=== PATIENT | male | born 1940 | race Two or more races ===

== ENCOUNTER 2017-10-17 15:07 | Inpatient (IN) | payer MEDICARE, OTHER ==
[~2017-10-17] VITALS: Ht 182.9 cm; Wt 77.1 kg
[~2017-10-17 15:07] MED LIST: ACETAMINOPHEN325 M1 ORAL; AMBIEN5 MG ORAL; ARICEPT5 MG ORAL; ASPIRIN81 M3 PO; ATARAX50 MG ORAL; ATENOLOL50 MG ORAL; FUROSEMIDE40 MG ORAL; LORAZEPAM0.5 MG ORAL; LOSARTAN POTASS50 MG ORAL; OMEPRAZOLE20 M2 ORAL; POTASSIUM CHLO20 ME3 PO; RISPERDAL0.5 MG ORAL; ROPINIROLE HCL1 MG PO; SERTRALINE HCL25 MG ORAL; SPIRONOLACTONE100 MG ORAL; TAMSULOSIN HCL0.4 MG ORAL
--- NOTE | 2017-10-17 16:14 | Diagnostic Imaging Report ---
Indication: Altered mental status Technique: spiral acquisitions obtained through the brain. Angled axial and coronal 5 x 5 mm slices were reconstructed. No IV contrast utilized. Radiation dose was minimized using automated exposure control Total dose length product 2301.54 mGycm. CTDIvol(s) 70.38,70.38 mGy Comparison: 12/26/2014 FINDINGS: No acute hemorrhage or edema. No mass effect or midline shift. There is age-related enlargement of the ventricles and extra axial CSF spaces. There is periventricular deep white matter ischemic change. Normal ferraro-white differentiation. Visualized orbits are unremarkable. . There is minimal right maxillary sinus disease and minimal right ethmoid sinus disease. There is a defect of the right posterior mastoids which may be postsurgical. This is also evident previously. Intact calvarium. No significant interim change IMPRESSION: Chronic and age-related changes. Negative for acute intracranial bleed or mass effect Postsurgical changes of the right mastoid, also previously described Minimal sinus disease The CT scanner at [facility] is accredited by the [employer] and the scans are performed using protocols designed to limit radiation exposure to as low as reasonably achievable to attain images of sufficient resolution adequate for diagnostic evaluation
[2017-10-17 16:22] VITALS: BP 112/67
--- NOTE | 2017-10-17 16:28 | Diagnostic Imaging Report ---
Indication: Chest pain Technique: One view of the chest Comparison: 12/26/2014 Findings: Suboptimal inspiration with minimal atelectasis and crowding of the vascular markings in the right infrahilar region. Lungs and pleural spaces are otherwise clear. There is a left chest AICD again demonstrated. Impression: Hypoventilatory exam. No acute process
[2017-10-17] MEDS ORDERED: LORazepam Inj 2mg/ml 1ml ONE (16:39)
[2017-10-17 16:40] LABS: BASOPHILS % (AUTO) 0.8 % (0.0-2.0); EOSINOPHILS % (AUTO) 1.7 % (0.0-3.0); HEMATOCRIT 44.5 % (42.0-52.0); HEMOGLOBIN 14.5 G/DL (14.2-18.0); LYMPHOCYTES % (AUTO) 19.7 % (20.0-45.0); MEAN CORPUSCULAR VOLUME 96 FL (80-99); MONOCYTES % (AUTO) 13.1 % (1.0-10.0); NEUTROPHILS % (AUTO) 64.7 % (45.0-75.0); PLATELET COUNT 148 K/UL (150-450); RED BLOOD COUNT 4.63 M/UL (4.70-6.10); RED CELL DISTRIBUTION WIDTH 13.5 % (11.6-14.8); WHITE BLOOD COUNT 7.5 K/UL (4.8-10.8)
[2017-10-17 17:03] LABS: ANION GAP 4 mmol/L (5-15); BLOOD UREA NITROGEN 27 mg/dL (7-18); CALCIUM 9.2 MG/DL (8.5-10.1); CARBON DIOXIDE 36 MMOL/L (21-32); CHLORIDE 101 MMOL/L (98-107); CREATININE 1.1 MG/DL (0.55-1.30); POTASSIUM 3.9 MMOL/L (3.5-5.1); SODIUM 141 MMOL/L (136-145)
[2017-10-17 17:12] LABS: ALANINE AMINOTRANSFERASE 26 U/L (12-78); ALBUMIN 3.2 G/DL (3.4-5.0); ALBUMIN/GLOBULIN RATIO 0.7 (1.0-2.7); ALKALINE PHOSPHATASE 53 U/L (46-116); ASPARTATE AMINO TRANSFERASE 25 U/L (15-37); BILIRUBIN,TOTAL 0.6 MG/DL (0.2-1.0); CREATINE KINASE 68 U/L (26-308); PHOSPHORUS 3.2 MG/DL (2.5-4.9)
[2017-10-17] MEDS ORDERED: LORazepam Inj 2mg/ml 1ml IV ONE (17:15)
[2017-10-17] MEDS ORDERED: DEPAKOTE ER250 MG ORAL (17:17)
[2017-10-17] MEDS ORDERED: LIDEX15 GM TOPIC (17:17)
[2017-10-17] MEDS ORDERED: LASIX40 MG ORAL (17:17)
[2017-10-17] MEDS ORDERED: LOSARTAN POTASS25 MG ORAL (17:17)
[2017-10-17] MEDS ORDERED: MULTIVITAMINS1 EA11 ORAL (17:17)
[2017-10-17] MEDS ORDERED: cefTRIAXone 1 GM in D5W 55 ML IVPB ONE (17:30)
--- NOTE | 2017-10-17 17:41 | History & Physical ---
History and Physical History & Physicial bilateral cellulitis LE Dementia. Wandering and elopement risk. History of hypertension. History of gastroesophageal reflux disease. Left facial droop. Ancef leg elevation Psych eval # [id number] MENA CÁRDENAS Oct 17, 2017 17:41
--- NOTE | 2017-10-17 17:43 | Emergency Room Report ---
History of Present Illness General Chief Complaint: Altered Level of Consciousness Source: Medical Record, EMS Present Illness HPI This patient was brought in from a shelter facility. There is concern for altered mental status. The patient is unable to give a history. Apparently he is more confused than usual and this has been progressing. There is also been noticeable lower extremity edema and erythema. He is on Keflex orally twice daily. There are no other complaints. Allergies: Coded Allergies: No Known Allergies (Unverified , 10/08/14) Patient History Past Medical History: see triage record, HTN, [place], CAD, GERD, dementia Past Surgical History: pacemaker Social History: Denies: smoking, alcohol use, drug use Reviewed Nursing Documentation: PMH: Agreed, PSxH: Agreed Nursing Documentation-PMH Hx Cardiac Problems: No - BPH Hx Hypertension: Yes Hx Pacemaker: Yes - A paced Hx Cancer: No Hx Gastrointestinal Problems: Yes Hx Neurological Problems: Yes Hx Dementia: Yes Hx Speech Problem: Yes Hx Tremors: Yes Review of Systems All Other Systems: limited Physical Exam Vital Signs Date Time Temp Pulse Resp B/P (MAP) Pulse Ox O2 Delivery O2 Flow Rate FiO2 10/17/17 15:17 98.6 90 16 110/68 98 Room Air 98.6 Sp02 EP Interpretation: reviewed, normal General Appearance: no apparent distress, alert, GCS 15, non-toxic Head: normocephalic, atraumatic Eyes: bilateral eye normal inspection, bilateral eye PERRL ENT: hearing grossly normal, normal pharynx, no angioedema, normal voice Neck: full range of motion, supple/symm/no masses Respiratory: chest non-tender, lungs clear, normal breath sounds, no respiratory distress, no retraction, no accessory muscle use, speaking full sentences Cardiovascular #1: regular rate, rhythm, no edema Gastrointestinal: normal bowel sounds, non tender, soft, non-distended, no guarding, no rebound, overweight Rectal: deferred Musculoskeletal: back normal, normal range of motion, non-tender, swelling - BLE swelling and erythema foot to mid kincaid Neurologic: alert, oriented x3, responsive, motor strength/tone normal, sensory intact, speech normal Psychiatric: other - agitated Skin: other - See MSK exam Medical Decision Making Diagnostic Impression: Primary Impression: Bilateral cellulitis of lower leg Additional Impression: Venous stasis dermatitis of both lower extremities ER Course This patient has venous stasis dermatitis of bilateral lower extremities. He may have an overlying cellulitis. He is currently on oral antibiotics. Apparently his symptoms have worsened. He is given IV Rocephin and admitted for further evaluation and treatment. Currently he is also had some progression of his confusion. I am unsure of the etiology of this. Differential diagnosis includes medication side effect, infection, worsening dementia to name a few. The patient is admitted for further evaluation and treatment. Laboratory Tests Test 10/17/17 15:50 White Blood Count 7.5 K/UL (4.8-10.8) Red Blood Count 4.63 M/UL (4.70-6.10) L Hemoglobin 14.5 G/DL (14.2-18.0) Hematocrit 44.5 % (42.0-52.0) Mean Corpuscular Volume 96 FL (80-99) Mean Corpuscular Hemoglobin 31.4 PG (27.0-31.0) H Mean Corpuscular Hemoglobin Concent 32.6 G/DL (32.0-36.0) Red Cell Distribution Width 13.5 % (11.6-14.8) Platelet Count 148 K/UL (150-450) L Mean Platelet Volume 11.1 FL (6.5-10.1) H Neutrophils (%) (Auto) 64.7 % (45.0-75.0) Lymphocytes (%) (Auto) 19.7 % (20.0-45.0) L Monocytes (%) (Auto) 13.1 % (1.0-10.0) H Eosinophils (%) (Auto) 1.7 % (0.0-3.0) Basophils (%) (Auto) 0.8 % (0.0-2.0) Prothrombin Time 10.7 SEC (9.30-11.50) Prothrombin Time INR 1.0 (0.9-1.1) PTT 25 SEC (23-33) Sodium Level 141 MMOL/L (136-145) Potassium Level 3.9 MMOL/L (3.5-5.1) Chloride Level 101 MMOL/L (98-107) Carbon Dioxide Level 36 MMOL/L (21-32) H Anion Gap 4 mmol/L (5-15) L Blood Urea Nitrogen 27 mg/dL (7-18) H Creatinine 1.1 MG/DL (0.55-1.30) Estimate Glomerular Filtration Rate mL/min (>60) Glucose Level 94 MG/DL (74-106) Lactic Acid Level 1.00 mmol/L (0.66-2.22) Calcium Level 9.2 MG/DL (8.5-10.1) Phosphorus Level 3.2 MG/DL (2.5-4.9) Magnesium Level 2.1 MG/DL (1.8-2.4) Total Bilirubin 0.6 MG/DL (0.2-1.0) Aspartate Amino Transferase (AST) 25 U/L (15-37) Alanine Aminotransferase (ALT) 26 U/L (12-78) Alkaline Phosphatase 53 U/L (46-116) Total Creatine Kinase 68 U/L (26-308) Creatine Kinase MB 1.0 NG/ML (0.0-3.6) Creatine Kinase MB Relative Index 1.4 Troponin I 0.000 ng/mL (0.000-0.056) Total Protein 7.5 G/DL (6.4-8.2) Albumin 3.2 G/DL (3.4-5.0) L Globulin 4.3 g/dL Albumin/Globulin Ratio 0.7 (1.0-2.7) L EKG Diagnostic Results Rate: normal Rhythm: other - SR w/ 1st degree AV block. LAD Rhythm Strip Diag. Results EP Interpretation: yes Rate: 70's Rhythm: NSR Chest X-Ray Diagnostic Results Chest X-Ray Diagnostic Results : Chest X-Ray Ordered: Yes # of Views/Limited/Complete: 1 View Indication: Other - ams EP Interpretation: No Interpretation: no consolidation, no effusion, no pneumothorax, no acute cardiopulmonary disease Impression: No acute disease Electronically Signed by: Mayra CT/MRI/US Diagnostic Results CT/MRI/US Diagnostic Results : Imaging Test Ordered: CT head Impression IMPRESSION: Chronic and age-related changes. Negative for acute intracranial bleed or mass effect Postsurgical changes of the right mastoid, also previously described Minimal sinus disease Last Vital Signs Date Time Temp Pulse Resp B/P (MAP) Pulse Ox O2 Delivery O2 Flow Rate FiO2 10/17/17 16:22 98.6 64 16 112/67 98 Room Air 98.6 Disposition: ADMITTED INPATIENT Condition: Stable Referrals: MENA CÁRDENAS (PCP) BRADY BENITEZ D.O. Oct 17, 2017 17:43
[2017-10-17] MEDS: Tamsulosin 0.4mg cap ORAL SCH (18:00)
[2017-10-17] MEDS ORDERED: Depakote ER 250mg tab ORAL SCH (18:00)
[2017-10-17 18:49] VITALS: BP 129/69
[2017-10-17 19:54] VITALS: BP 101/87
[2017-10-17 22:02] VITALS: BP 111/84
[2017-10-17] MEDS: ceFAZolin sod 1 GM in NS 55 ML IVPB SCH (22:13)
[2017-10-17] MEDS: Donepezil 5mg Tab ORAL SCH (22:14)
[2017-10-17] MEDS: Haloperidol 5mg/ml Inj IM PRN (22:15)
[2017-10-17] MEDS: Heparin 5000 units/ml inj SUBQ SCH (22:15)
[2017-10-18] VITALS: BP 116/78
[2017-10-18 00:18] LABS: APPEARANCE,URINE CLEAR; BILIRUBIN, URINE NEGATIVE (NEGATIVE); COLOR,URINE PALE YELLOW; GLUCOSE, URINE (UA) NEGATIVE (NEGATIVE); KETONES,URINE NEGATIVE (NEGATIVE); LEUKOCYTE ESTERASE ,URINE NEGATIVE (NEGATIVE); NITRITE,URINE NEGATIVE (NEGATIVE); PH,URINE 8 (4.5-8.0); PROTEIN,URINE NEGATIVE (NEGATIVE); UROBILINOGEN,URINE NORMAL MG/DL (0.0-1.0)
[2017-10-18] MEDS: Haloperidol 5mg/ml Inj IM PRN ×2 (02:24→06:16)
[2017-10-18 04:00] VITALS: BP 124/80
[2017-10-18] MEDS: ceFAZolin sod 1 GM in NS 55 ML IVPB SCH ×3 (05:20→21:46)
[2017-10-18 08:00] VITALS: BP 107/55
[2017-10-18] MEDS ORDERED: Losartan 25mg tab ORAL SCH (09:00)
[2017-10-18] MEDS: Heparin 5000 units/ml inj SUBQ SCH ×2 (09:00→20:48)
[2017-10-18] MEDS: Tamsulosin 0.4mg cap ORAL SCH ×2 (09:03→20:46)
[2017-10-18] MEDS: Aspirin Baby 81mg ORAL SCH (09:03)
[2017-10-18 10:53] LABS: BASOPHILS % (AUTO) 1.2 % (0.0-2.0); EOSINOPHILS % (AUTO) 1.9 % (0.0-3.0); HEMATOCRIT 44.9 % (42.0-52.0); HEMOGLOBIN 14.9 G/DL (14.2-18.0); LYMPHOCYTES % (AUTO) 14.1 % (20.0-45.0); MEAN CORPUSCULAR VOLUME 95 FL (80-99); MONOCYTES % (AUTO) 14.7 % (1.0-10.0); NEUTROPHILS % (AUTO) 68.1 % (45.0-75.0); PLATELET COUNT 164 K/UL (150-450); RED BLOOD COUNT 4.72 M/UL (4.70-6.10); RED CELL DISTRIBUTION WIDTH 13.4 % (11.6-14.8); WHITE BLOOD COUNT 7.8 K/UL (4.8-10.8)
[2017-10-18 11:43] LABS: ALANINE AMINOTRANSFERASE 25 U/L (12-78); ALBUMIN 2.7 G/DL (3.4-5.0); ALBUMIN/GLOBULIN RATIO 0.7 (1.0-2.7); ALKALINE PHOSPHATASE 50 U/L (46-116); ANION GAP 4 mmol/L (5-15); ASPARTATE AMINO TRANSFERASE 27 U/L (15-37); BILIRUBIN,TOTAL 0.6 MG/DL (0.2-1.0); BLOOD UREA NITROGEN 20 mg/dL (7-18); CALCIUM 8.5 MG/DL (8.5-10.1); CARBON DIOXIDE 35 MMOL/L (21-32); CHLORIDE 102 MMOL/L (98-107); CHOLESTEROL 132 MG/DL (< 200); CREATINE KINASE 244 U/L (26-308); GAMMA GLUTAMYL TRANSPEPTIDASE 8 U/L (5-85); HDL CHOLESTEROL 40 MG/DL (40-60); PHOSPHORUS 2.4 MG/DL (2.5-4.9); POTASSIUM 3.3 MMOL/L (3.5-5.1); SODIUM 141 MMOL/L (136-145); TRIGLYCERIDES 64 MG/DL (30-150)
[2017-10-18] MEDS: LORazepam 1mg tab ORAL PRN ×3 (12:04→23:06)
--- NOTE | 2017-10-18 13:13 | Infectious Diseases Prog Note ---
Assessment/Plan Problems: (1) Bilateral cellulitis of lower leg Assessment & Plan: will start vancomycin and continue cefazolin empiric coverage, pending blood culture (2) Venous stasis dermatitis of both lower extremities Assessment & Plan: will order venous doppler to rule out DVT, keep legs elevated all the time (3) Altered mental status Assessment & Plan: with negative head CT of the brain, avoid sedative , continue neuro check, consult neuro if no improvement Subjective Allergies: Coded Allergies: No Known Allergies (Unverified , 10/08/14) Objective Vital Signs Last 24 Hour Vital Signs Date Time Temp Pulse Resp B/P (MAP) Pulse Ox O2 Delivery O2 Flow Rate FiO2 10/18/17 09:04 107/55 10/18/17 08:00 97.8 86 20 107/55 90 97.8 10/18/17 04:00 97.6 77 20 124/80 93 Room Air 97.6 10/18/17 04:00 Room Air 10/18/17 00:00 Room Air 10/18/17 00:00 97.2 82 20 116/78 94 Room Air 97.2 10/17/17 22:02 97.6 84 20 111/84 93 Room Air 97.6 10/17/17 20:21 98.6 89 22 101/87 98 Room Air 98.6 10/17/17 19:54 98.6 89 22 101/87 98 Room Air 98.6 10/17/17 18:49 98.6 75 18 129/69 98 Room Air 98.6 10/17/17 16:22 98.6 64 16 112/67 98 Room Air 98.6 10/17/17 15:17 98.6 90 16 110/68 98 Room Air 98.6 Height (Feet): 6 Height (Inches): 0.00 Weight (Pounds): 170 Laboratory Tests Test 10/17/17 15:50 10/17/17 23:35 10/18/17 10:30 White Blood Count 7.5 K/UL (4.8-10.8) 7.8 K/UL (4.8-10.8) Red Blood Count 4.63 M/UL (4.70-6.10) L 4.72 M/UL (4.70-6.10) Hemoglobin 14.5 G/DL (14.2-18.0) 14.9 G/DL (14.2-18.0) Hematocrit 44.5 % (42.0-52.0) 44.9 % (42.0-52.0) Mean Corpuscular Volume 96 FL (80-99) 95 FL (80-99) Mean Corpuscular Hemoglobin 31.4 PG (27.0-31.0) H 31.5 PG (27.0-31.0) H Mean Corpuscular Hemoglobin Concent 32.6 G/DL (32.0-36.0) 33.2 G/DL (32.0-36.0) Red Cell Distribution Width 13.5 % (11.6-14.8) 13.4 % (11.6-14.8) Platelet Count 148 K/UL (150-450) L 164 K/UL (150-450) Mean Platelet Volume 11.1 FL (6.5-10.1) H 11.1 FL (6.5-10.1) H Neutrophils (%) (Auto) 64.7 % (45.0-75.0) 68.1 % (45.0-75.0) Lymphocytes (%) (Auto) 19.7 % (20.0-45.0) L 14.1 % (20.0-45.0) L Monocytes (%) (Auto) 13.1 % (1.0-10.0) H 14.7 % (1.0-10.0) H Eosinophils (%) (Auto) 1.7 % (0.0-3.0) 1.9 % (0.0-3.0) Basophils (%) (Auto) 0.8 % (0.0-2.0) 1.2 % (0.0-2.0) Prothrombin Time 10.7 SEC (9.30-11.50) Prothromb Time International Ratio 1.0 (0.9-1.1) Activated Partial Thromboplast Time 25 SEC (23-33) Sodium Level 141 MMOL/L (136-145) 141 MMOL/L (136-145) Potassium Level 3.9 MMOL/L (3.5-5.1) 3.3 MMOL/L (3.5-5.1) L Chloride Level 101 MMOL/L (98-107) 102 MMOL/L (98-107) Carbon Dioxide Level 36 MMOL/L (21-32) H 35 MMOL/L (21-32) H Anion Gap 4 mmol/L (5-15) L 4 mmol/L (5-15) L Blood Urea Nitrogen 27 mg/dL (7-18) H 20 mg/dL (7-18) H Creatinine 1.1 MG/DL (0.55-1.30) 1.0 MG/DL (0.55-1.30) Estimat Glomerular Filtration Rate mL/min (>60) mL/min (>60) Glucose Level 94 MG/DL (74-106) 101 MG/DL (74-106) Lactic Acid Level 1.00 mmol/L (0.66-2.22) Calcium Level 9.2 MG/DL (8.5-10.1) 8.5 MG/DL (8.5-10.1) Phosphorus Level 3.2 MG/DL (2.5-4.9) 2.4 MG/DL (2.5-4.9) L Magnesium Level 2.1 MG/DL (1.8-2.4) 1.9 MG/DL (1.8-2.4) Total Bilirubin 0.6 MG/DL (0.2-1.0) 0.6 MG/DL (0.2-1.0) Aspartate Amino Transf (AST/SGOT) 25 U/L (15-37) 27 U/L (15-37) Alanine Aminotransferase (ALT/SGPT) 26 U/L (12-78) 25 U/L (12-78) Alkaline Phosphatase 53 U/L (46-116) 50 U/L (46-116) Total Creatine Kinase 68 U/L (26-308) 244 U/L (26-308) Creatine Kinase MB 1.0 NG/ML (0.0-3.6) Creatine Kinase MB Relative Index 1.4 Troponin I 0.000 ng/mL (0.000-0.056) C-Reactive Protein, Quantitative < 0.4 mg/dL (0.00-0.90) Total Protein 7.5 G/DL (6.4-8.2) 6.5 G/DL (6.4-8.2) Albumin 3.2 G/DL (3.4-5.0) L 2.7 G/DL (3.4-5.0) L Globulin 4.3 g/dL 3.8 g/dL Albumin/Globulin Ratio 0.7 (1.0-2.7) L 0.7 (1.0-2.7) L Urine Color Pale yellow Urine Appearance Clear Urine pH 8 (4.5-8.0) Urine Specific [place] 1.015 (1.005-1.035) Urine Protein Negative (NEGATIVE) Urine Glucose (UA) Negative (NEGATIVE) Urine Ketones Negative (NEGATIVE) Urine Occult Blood Negative (NEGATIVE) Urine Nitrite Negative (NEGATIVE) Urine Bilirubin Negative (NEGATIVE) Urine Urobilinogen Normal MG/DL (0.0-1.0) Urine Leukocyte Esterase Negative (NEGATIVE) Hemoglobin A1c 5.8 % (4.3-6.0) Uric Acid 7.1 MG/DL (2.6-7.2) Gamma Glutamyl Transpeptidase 8 U/L (5-85) Pro-B-Type Natriuretic Peptide 160 pg/mL (0-125) H Triglycerides Level 64 MG/DL (30-150) Cholesterol Level 132 MG/DL (< 200) LDL Cholesterol 83 mg/dL (<100) HDL Cholesterol 40 MG/DL (40-60) Cholesterol/HDL Ratio 3.3 (3.3-4.4) Vitamin B12 Level 641 PG/ML (193-986) Folate 12.5 NG/ML (8.6-58.9) Thyroid Stimulating Hormone (TSH) 1.705 uiU/mL (0.358-3.740) Valproic Acid (Depakene) Level 26 MCG/ML (50-100) L Current Medications Medications (Trade) Dose Ordered Sig/Monalisa Route PRN Reason Start Time Stop Time Status Last Admin Dose Admin Acetaminophen (Tylenol) 625 mg Q6H PRN ORAL For Mild Pain 10/17/17 17:45 11/16/17 17:44 Aspirin (ASA) 81 mg DAILY ORAL 10/18/17 09:00 11/17/17 08:59 10/18/17 09:03 Cefazolin Sodium 1 gm/Sodium Chloride 55 ml @ 110 mls/hr Q8HR IVPB 10/17/17 19:30 10/24/17 19:29 10/18/17 05:20 Divalproex Sodium (Depakote ER) 750 mg QHS ORAL 10/17/17 21:00 11/16/17 20:59 Donepezil HCl (Aricept) 5 mg QHS ORAL 10/17/17 21:00 11/16/17 20:59 10/17/17 22:14 Furosemide (Lasix) 20 mg DAILY IV 10/18/17 09:00 11/17/17 08:59 10/18/17 09:03 Heparin Sodium (Porcine) (Heparin 5000 units/ml) 5,000 units EVERY 12 HOURS SUBQ 10/17/17 21:00 11/16/17 20:59 10/17/17 22:15 Lorazepam (Ativan) 1 mg Q4H PRN ORAL For Anxiety 10/18/17 09:45 10/25/17 09:44 10/18/17 12:04 Losartan Potassium (Cozaar) 12.5 mg DAILY ORAL 10/18/17 09:00 11/17/17 08:59 10/18/17 09:04 Pantoprazole (Protonix) 40 mg EVERY 12 HOURS ORAL 10/17/17 21:00 11/16/17 20:59 10/18/17 09:03 Tamsulosin HCl (Flomax) 0.4 mg BID ORAL 10/17/17 18:00 11/16/17 17:59 10/18/17 09:03 Elina Marie M.D. Oct 18, 2017 13:13
[2017-10-18] MEDS: Vancomycin 1.5 GM/D5W 250ML IVPB SCH (15:34)
[2017-10-18 16:00] VITALS: BP 100/57
--- NOTE | 2017-10-18 16:16 | General Progress Note ---
Assessment/Plan Problem List: (1) Hypotension ICD Codes: I95.9 - Hypotension, unspecified SNOMED: 67970759 (2) Bilateral cellulitis of lower leg ICD Codes: L03.116 - Cellulitis of left lower limb; L03.115 - Cellulitis of right lower limb SNOMED: 686557492 (3) Venous stasis dermatitis of both lower extremities ICD Codes: I87.2 - Venous insufficiency (chronic) (peripheral) SNOMED: 19384680 (4) Encephalopathy ICD Codes: G93.40 - Encephalopathy, unspecified SNOMED: 82886812 (5) Functional paraparesis ICD Codes: G82.20 - Paraplegia, unspecified SNOMED: 914891276 Status Narrative - Bilateral cellulitis of lower leg - Venous stasis dermatitis of both lower extremities - Altered mental status / encephalopathy - Dementia with frequent agitative states - h/o HTN -h/o Lt facial droop Assessment/Plan Ancef / Vanco leg elevation IV Lasix K Phos Psych eval ID eval Subjective ROS Limited/Unobtainable: Yes Allergies: Coded Allergies: No Known Allergies (Unverified , 10/08/14) Objective Last 24 Hour Vital Signs Date Time Temp Pulse Resp B/P (MAP) Pulse Ox O2 Delivery O2 Flow Rate FiO2 10/18/17 16:00 97.7 71 18 100/57 93 97.7 10/18/17 09:04 107/55 10/18/17 08:00 97.8 86 20 107/55 90 97.8 10/18/17 04:00 97.6 77 20 124/80 93 Room Air 97.6 10/18/17 04:00 Room Air 10/18/17 00:00 Room Air 10/18/17 00:00 97.2 82 20 116/78 94 Room Air 97.2 10/17/17 22:02 97.6 84 20 111/84 93 Room Air 97.6 10/17/17 20:21 98.6 89 22 101/87 98 Room Air 98.6 10/17/17 19:54 98.6 89 22 101/87 98 Room Air 98.6 10/17/17 18:49 98.6 75 18 129/69 98 Room Air 98.6 10/17/17 16:22 98.6 64 16 112/67 98 Room Air 98.6 Intake and Output 10/17/17 10/18/17 19:00 07:00 Intake Total 405 ml Balance 405 ml Intake IV Total 55 ml Tube Feeding 350 ml # Voids 1 3 Laboratory Tests 10/17/17 23:35: Urine Color Pale yellow, Urine Appearance Clear, Urine pH 8, Urine Specific [place] 1.015, Urine Protein Negative, Urine Glucose (UA) Negative, Urine Ketones Negative, Urine Occult Blood Negative, Urine Nitrite Negative, Urine Bilirubin Negative, Urine Urobilinogen Normal, Urine Leukocyte Esterase Negative 10/18/17 10:30: White Blood Count 7.8, Red Blood Count 4.72, Hemoglobin 14.9, Hematocrit 44.9, Mean Corpuscular Volume 95, Mean Corpuscular Hemoglobin 31.5H, Mean Corpuscular Hemoglobin Concent 33.2, Red Cell Distribution Width 13.4, Platelet Count 164, Mean Platelet Volume 11.1H, Neutrophils (%) (Auto) 68.1, Lymphocytes (%) (Auto) 14.1L, Monocytes (%) (Auto) 14.7H, Eosinophils (%) (Auto) 1.9, Basophils (%) ( Auto) 1.2, Sodium Level 141, Potassium Level 3.3L, Chloride Level 102, Carbon Dioxide Level 35H, Anion Gap 4L, Blood Urea Nitrogen 20H, Creatinine 1.0, Estimat Glomerular Filtration Rate , Glucose Level 101, Hemoglobin A1c 5.8, Uric Acid 7.1, Calcium Level 8.5, Phosphorus Level 2.4L, Magnesium Level 1.9, Total Bilirubin 0.6, Gamma Glutamyl Transpeptidase 8, Aspartate Amino Transf ( AST/SGOT) 27, Alanine Aminotransferase (ALT/SGPT) 25, Alkaline Phosphatase 50, Total Creatine Kinase 244, Pro-B-Type Natriuretic Peptide 160H, Total Protein 6.5, Albumin 2.7L, Globulin 3.8, Albumin/Globulin Ratio 0.7L, Triglycerides Level 64, Cholesterol Level 132, LDL Cholesterol 83, HDL Cholesterol 40, Cholesterol/HDL Ratio 3.3, Vitamin B12 Level 641, Folate 12.5, Thyroid Stimulating Hormone (TSH) 1.705, Valproic Acid (Depakene) Level 26L Height (Feet): 6 Height (Inches): 0.00 Weight (Pounds): 170 General Appearance: agitated Cardiovascular: normal rate Respiratory/Chest: decreased breath sounds Abdomen: distended Extremities: other - cellulitis and venous stasis changes MENA CÁRDENAS Oct 18, 2017 16:16
[2017-10-18] MEDS ORDERED: Potassium Phosphate 30 MM in Sodium Chloride 500ML 550 ML IV ONE (17:00)
[2017-10-18 19:58] VITALS: BP 129/79
--- NOTE | 2017-10-18 20:15 | Consultation ---
DATE OF CONSULTATION: 10/18/2017 INFECTIOUS DISEASE CONSULTATION CONSULTING PHYSICIAN: Elina Marie M.D. REQUESTING PHYSICIAN: Josh Rea M.D. REASON FOR CONSULTATION: Severe cellulitis of both lower extremities, recommendation for antibiotics treatment. HISTORY OF PRESENT ILLNESS: The patient is a 77-year-old male, who is a resident of retirement facility of [facility], who was transferred to [facility] emergency room for altered mental status and ankle fusion, which has been progressing as per the record. The patient also was noticed to have extensive edema with erythema and redness of both lower extremities and multiple skin bruises. The patient was evaluated in the emergency room. His temperature was 98.6 degrees and saturating 98% on room air. The patient was altered, was unable to provide any history. History was mainly obtained from the medical record and nursing staff. At the time of my interview, the patient was unresponsive, does not follow commands. Nurse was present at the bedside. Infectious Disease consultation was requested due to extensive cellulitis of both lower extremities with superficial skin wounds. REVIEW OF SYSTEMS: Unable to obtain. The patient is a poor historian, cannot provide any history. PAST MEDICAL HISTORY: Significant for hypertension, myocardial infarction, coronary artery disease, GERD, and dementia. PAST SURGICAL HISTORY: He had a pacemaker placement. MEDICATIONS: The patient currently is on cefazolin. For the rest of his medications, please refer to MAR. ALLERGIES: No known drug allergies. SOCIAL HISTORY: The patient lives at [facility]. No recent drugs, tobacco, or alcohol. PHYSICAL EXAMINATION: VITAL SIGNS: Temperature 97.8 degrees, pulse 86, respirations 20, blood pressure 107/55, and saturation 90% on room air. GENERAL: An elderly male, lying in bed, unresponsive, altered, does not follow commands, not in acute distress. The patient does not follow commands. HEENT: Normocephalic and atraumatic. Left facial droop. Unable to assess pupils or oral mucosa. NECK: Seems to be supple. No lymphadenopathy. CARDIOVASCULAR: Regular rate and rhythm. No murmur. No gallop. LUNGS: Clear bilaterally. Diminished breathing sounds at the bases. No wheezing or rhonchi. ABDOMEN: Soft, nontender, nondistended. No organomegaly. No ascites. No rebound. EXTREMITIES: He had extensive edema with significant redness and erythema on both lower extremities, anterior aspect of his legs with superficial wounds and dry blood. Pulse is poor in both lower extremities. SKIN: He has redness, erythema, and superficial wound on both anterior shins of both legs. LABORATORY AND DIAGNOSTIC DATA: Labs showed white count of 7.8, hemoglobin of 14.9, and platelet count of 164. BUN of 20, creatinine of 1. AST of 27, ALT of 25. Urinalysis was negative for nitrite, negative for leukocyte esterases, and no mention of bacteria or WBC at all in the report. Imaging, head CT scan showed chronic and age-related changes, negative for acute intracranial bleed or mass effect. Chest x-ray showed hypoventilation, no acute process. ASSESSMENT AND RECOMMENDATION: 1. Bilateral cellulitis of both lower extremities. We will start vancomycin to cover for possible Methicillin-resistant Staphylococcus aureus and continue cefazolin empiric coverage pending blood culture. Keep legs elevated all the time. 2. Venous stasis dermatitis of both lower extremities. We will order venous Doppler to rule out deep venous thrombosis. Keep legs elevated while in bed. May benefit from compression device in the future after cellulitis improved. 3. Altered mental status with negative head CT of the brain. Avoid sedative. Continue neurologic check. Consult Neurology if no improvement. Thank you for the consultation. Infectious Disease will continue to follow. Elina Marie M.D. DR: Shane JOB#: [id number] CC:
[2017-10-18] MEDS: Donepezil 5mg Tab ORAL SCH (20:46)
[2017-10-18] MEDS: Depakote ER 250mg tab ORAL SCH ×2 (20:46→21:00)
--- NOTE | 2017-10-18 21:00 | Consultation ---
DATE OF CONSULTATION: 10/17/2017 CONSULTING PHYSICIAN: Elle Paul M.D. HISTORY OF PRESENT ILLNESS: This is a 77-year-old male with a history of dementia with behavior disturbance, encephalopathy, cellulitis, hypotension, and venous stasis dermatitis, who has been admitted to the hospital for treatment of his cellulitis as well as behavior issues. During the evaluation, the patient is confused, disoriented, gets agitated, and attempts to come out of bed. PAST PSYCHIATRIC HISTORY: He has a history of psychotic disorder, behavior issues, agitation, has been hospitalized before, has been treated with antipsychotics as well as mood stabilizers. PAST MEDICAL HISTORY: As above. ALLERGIES: No known drug allergies. SUBSTANCE ABUSE HISTORY: No known history of illicit drug use or alcohol. MENTAL STATUS EXAMINATION: The patient is alert, oriented times self, place, and situation he is in. Mood is anxious and agitated. Affect is constricted, congruent with mood. Thought process is concrete. Thought content, there is a paucity of thought content. Thought content is negative for suicidal or homicidal ideations. Cognition is impaired. Insight and judgment non-existent. ASSESSMENT: [place] I Dementia with behavior disturbance. [place] II Deferred. [place] III As above. [place] IV Low. [place] V 20. PLAN: 1. Start the patient on Depakote ER 750 at bedtime. Discontinue the Depakote 250 b.i.d. 2. We will discontinue the donepezil, discontinue the Haldol. 3. We will start the patient on lorazepam 1 mg every 4 hours as needed. 4. We will continue to follow and readjust the medication. Elle Paul M.D. DR: Jadon JOB#: [id number] CC:
--- NOTE | 2017-10-18 22:45 | Progress Note ---
DATE: 10/18/2017 SUBJECTIVE: The patient is in bed, still has episodes of agitation. He is on one-to-one as the present is attempting to come out of bed. He has poor insight and judgment. Cognition is impaired. ASSESSMENT: Dementia with behavior disturbance. PLAN: We will continue the Depakote 750 mg. Discontinue donepezil. Ativan as needed. Provide the patient with supportive therapy and reality orientation. Elle Paul M.D. DR: ANDREEA JOB#: [id number] CC:
[2017-10-19] VITALS: BP 121/74
--- NOTE | 2017-10-19 00:15 | History and Physical Report ---
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 The patient was found to have behavioral issues and at the same time bilateral leg swelling and cellulitis of the lower extremities. The patient came in to emergency room and subsequently admitted for further management. PAST MEDICAL HISTORY: Significant for dementia with wandering and eloping behavior, history of hypertension, history of gastroesophageal reflux disease, and also left facial droop in the past. PHYSICAL EXAMINATION: VITAL SIGNS: When seen, blood pressure was 101/87, respiratory rate was 22. The temperature was 98.6 degrees and respiratory rate was 20. GENERAL: The patient is agitated during this examination. HEENT: Head, normocephalic. Neck is full. Sclerae not icteric. LUNGS: Poor inspiratory effort. Decreased breath sounds over the bases. HEART: Regular and distant. ABDOMEN: Obese and soft. EXTREMITIES: Lower extremities, 2 to 3+ edema with chronic stasis skin changes and cellulitic changes of the lower extremity. NEUROLOGIC: Moves all extremities. LABORATORY AND DIAGNOSTIC DATA: White blood cells 4.5 and hemoglobin 14.5. BUN 27 and potassium 3.9. Urine negative. The Depakote level 26. IMPRESSION: 1. Bilateral cellulitis of the lower extremities and venous stasis dermatitis of both lower extremities. 2. Encephalopathy. 3. Dementia with agitative disorder or behavior. PLAN: At this point, rest, psychiatric evaluation, IV Lasix, leg elevation, IV Ancef, and local skin care. According to how the patient's condition evolves, we will make the proper changes in our future management. Josh Rea M.D. DR: NAIMA JOB#: [id number] CC:
[2017-10-19] MEDS: LORazepam 1mg tab ORAL PRN ×3 (04:08→20:43)
[2017-10-19 04:10] VITALS: BP 132/73
[2017-10-19] MEDS: ceFAZolin sod 1 GM in NS 55 ML IVPB SCH ×3 (06:06→21:55)
[2017-10-19 07:33] LABS: ALANINE AMINOTRANSFERASE 22 U/L (12-78); ALBUMIN 2.4 G/DL (3.4-5.0); ALBUMIN/GLOBULIN RATIO 0.7 (1.0-2.7); ALKALINE PHOSPHATASE 46 U/L (46-116); ANION GAP 2 mmol/L (5-15); ASPARTATE AMINO TRANSFERASE 25 U/L (15-37); BILIRUBIN,TOTAL 0.6 MG/DL (0.2-1.0); BLOOD UREA NITROGEN 18 mg/dL (7-18); CALCIUM 8.3 MG/DL (8.5-10.1); CARBON DIOXIDE 34 MMOL/L (21-32); CHLORIDE 106 MMOL/L (98-107); PHOSPHORUS 3.1 MG/DL (2.5-4.9); POTASSIUM 3.4 MMOL/L (3.5-5.1); SODIUM 142 MMOL/L (136-145)
[2017-10-19 08:00] VITALS: BP 129/68
[2017-10-19] MEDS: Aspirin Baby 81mg ORAL SCH (09:31)
[2017-10-19] MEDS: Lisinopril 2.5mg tab ORAL SCH (09:31)
[2017-10-19] MEDS: Heparin 5000 units/ml inj SUBQ SCH ×2 (09:33→20:35)
[2017-10-19 12:00] VITALS: BP 106/67
--- NOTE | 2017-10-19 12:26 | General Progress Note ---
Assessment/Plan Problem List: (1) Hypotension ICD Codes: I95.9 - Hypotension, unspecified SNOMED: 29947743 (2) Bilateral cellulitis of lower leg ICD Codes: L03.116 - Cellulitis of left lower limb; L03.115 - Cellulitis of right lower limb SNOMED: 321372597 (3) Venous stasis dermatitis of both lower extremities ICD Codes: I87.2 - Venous insufficiency (chronic) (peripheral) SNOMED: 35093101 (4) Encephalopathy ICD Codes: G93.40 - Encephalopathy, unspecified SNOMED: 10081832 (5) Functional paraparesis ICD Codes: G82.20 - Paraplegia, unspecified SNOMED: 702033942 Assessment/Plan Ancef / Vanco leg elevation IV Lasix K Phos Psych eval ID eval Subjective ROS Limited/Unobtainable: No Allergies: Coded Allergies: No Known Allergies (Unverified , 10/08/14) Objective Last 24 Hour Vital Signs Date Time Temp Pulse Resp B/P (MAP) Pulse Ox O2 Delivery O2 Flow Rate FiO2 10/19/17 12:00 97.7 18 106/67 96 97.7 10/19/17 09:31 129/68 10/19/17 08:00 97.4 18 129/68 95 97.4 10/19/17 04:10 97.9 60 17 132/73 91 97.9 10/19/17 00:00 97.6 77 18 121/74 92 97.6 10/18/17 19:58 97.4 90 18 129/79 92 97.4 10/18/17 16:00 97.7 71 18 100/57 93 97.7 Intake and Output 10/18/17 10/19/17 19:00 07:00 Intake Total 540 ml 580 ml Output Total 600 ml 650 ml Balance -60 ml -70 ml Intake Oral 540 ml 360 ml IV Total 220 ml Output Urine Total 600 ml 650 ml # Voids 1 Laboratory Tests 10/19/17 06:55: Sodium Level 142, Potassium Level 3.4L, Chloride Level 106, Carbon Dioxide Level 34H, Anion Gap 2L, Blood Urea Nitrogen 18, Creatinine 1.0, Estimat Glomerular Filtration Rate , Glucose Level 86, Calcium Level 8.3L, Phosphorus Level 3.1, Magnesium Level 2.0, Total Bilirubin 0.6, Aspartate Amino Transf (AST /SGOT) 25, Alanine Aminotransferase (ALT/SGPT) 22, Alkaline Phosphatase 46, Total Protein 5.8L, Albumin 2.4L, Globulin 3.4, Albumin/Globulin Ratio 0.7L, Valproic Acid (Depakene) Level 30L Height (Feet): 6 Height (Inches): 0.00 Weight (Pounds): 170 General Appearance: no apparent distress Cardiovascular: normal rate Respiratory/Chest: decreased breath sounds Abdomen: soft Extremities: no calf tenderness - changes +++, other - edema down Objective no other change MENA CÁRDENAS Oct 19, 2017 12:26
--- NOTE | 2017-10-19 14:53 | Infectious Diseases Prog Note ---
Assessment/Plan Problems: (1) Bilateral cellulitis of lower leg Assessment & Plan: continue vancomycin and cefazolin empiric coverage, pending blood culture and venous doppler (2) Venous stasis dermatitis of both lower extremities Assessment & Plan: await venous doppler to rule out DVT, keep legs elevated all the time (3) Altered mental status Assessment & Plan: improving, with negative head CT of the brain, avoid sedative , continue neuro check, consult neuro if no improvement Subjective ROS Limited/Unobtainable: Yes Allergies: Coded Allergies: No Known Allergies (Unverified , 10/08/14) Subjective he was more awake and alert today, nonverbal, dosen't follow commands. afebrile , with less legs edema and redness Objective Vital Signs Last 24 Hour Vital Signs Date Time Temp Pulse Resp B/P (MAP) Pulse Ox O2 Delivery O2 Flow Rate FiO2 10/19/17 12:00 97.7 18 106/67 96 97.7 10/19/17 09:31 129/68 10/19/17 08:00 97.4 18 129/68 95 97.4 10/19/17 04:10 97.9 60 17 132/73 91 97.9 10/19/17 00:00 97.6 77 18 121/74 92 97.6 10/18/17 19:58 97.4 90 18 129/79 92 97.4 10/18/17 16:00 97.7 71 18 100/57 93 97.7 Height (Feet): 6 Height (Inches): 0.00 Weight (Pounds): 170 General Appearance: WD/WN, no acute distress HEENT: normocephalic, atraumatic, anicteric, mucous membranes moist, PERRL, pharynx normal, supple Respiratory/Chest: lungs clear, normal breath sounds, no respiratory distress, no accessory muscle use Cardiovascular: normal peripheral pulses, normal rate, regular rhythm, no gallop/murmur, no JVD Abdomen: normal bowel sounds, soft, non tender, no organomegaly, non distended , no mass, no scars Extremities: no cyanosis, no clubbing, other - legs edema with skin redness , warms and wounds Skin: rash, ulcers Neurologic/Psychiatric: alert, unresponsiveness Lymphatic: no neck adenopathy, no groin adenopathy Microbiology Date/Time Source Procedure Growth Status 10/17/17 16:00 Blood Blood Culture - Preliminary NO GROWTH AFTER 24 HOURS Resulted 10/17/17 15:50 Blood Blood Culture - Preliminary NO GROWTH AFTER 24 HOURS Resulted Laboratory Tests Test 10/19/17 06:55 Sodium Level 142 MMOL/L (136-145) Potassium Level 3.4 MMOL/L (3.5-5.1) L Chloride Level 106 MMOL/L (98-107) Carbon Dioxide Level 34 MMOL/L (21-32) H Anion Gap 2 mmol/L (5-15) L Blood Urea Nitrogen 18 mg/dL (7-18) Creatinine 1.0 MG/DL (0.55-1.30) Estimat Glomerular Filtration Rate mL/min (>60) Glucose Level 86 MG/DL (74-106) Calcium Level 8.3 MG/DL (8.5-10.1) L Phosphorus Level 3.1 MG/DL (2.5-4.9) Magnesium Level 2.0 MG/DL (1.8-2.4) Total Bilirubin 0.6 MG/DL (0.2-1.0) Aspartate Amino Transf (AST/SGOT) 25 U/L (15-37) Alanine Aminotransferase (ALT/SGPT) 22 U/L (12-78) Alkaline Phosphatase 46 U/L (46-116) Total Protein 5.8 G/DL (6.4-8.2) L Albumin 2.4 G/DL (3.4-5.0) L Globulin 3.4 g/dL Albumin/Globulin Ratio 0.7 (1.0-2.7) L Valproic Acid (Depakene) Level 30 MCG/ML (50-100) L Current Medications Medications (Trade) Dose Ordered Sig/Monalisa Route PRN Reason Start Time Stop Time Status Last Admin Dose Admin Acetaminophen (Tylenol) 625 mg Q6H PRN ORAL For Mild Pain 10/17/17 17:45 11/16/17 17:44 Aspirin (ASA) 81 mg DAILY ORAL 10/18/17 09:00 11/17/17 08:59 10/19/17 09:31 Cefazolin Sodium 1 gm/Sodium Chloride 55 ml @ 110 mls/hr Q8HR IVPB 10/17/17 19:30 10/24/17 19:29 10/19/17 13:25 Divalproex Sodium (Depakote ER) 750 mg QHS ORAL 10/17/17 21:00 11/16/17 20:59 10/18/17 20:46 Donepezil HCl (Aricept) 5 mg QHS ORAL 10/17/17 21:00 11/16/17 20:59 10/18/17 20:46 Furosemide (Lasix) 20 mg DAILY ORAL 10/20/17 09:00 11/19/17 08:59 Heparin Sodium (Porcine) (Heparin 5000 units/ml) 5,000 units EVERY 12 HOURS SUBQ 10/17/17 21:00 11/16/17 20:59 10/19/17 09:33 Lisinopril (Zestril) 2.5 mg DAILY ORAL 10/19/17 09:00 11/18/17 08:59 10/19/17 09:31 Lorazepam (Ativan) 1 mg Q4H PRN ORAL For Anxiety 10/18/17 09:45 10/25/17 09:44 10/19/17 12:51 Pantoprazole (Protonix) 40 mg EVERY 12 HOURS ORAL 10/17/17 21:00 11/16/17 20:59 10/19/17 09:31 Potassium Chloride (K-Dur) 40 meq DAILY ORAL 10/20/17 09:00 11/19/17 08:59 Tamsulosin HCl (Flomax) 0.4 mg QHS ORAL 10/18/17 21:00 11/16/17 17:59 10/18/17 20:46 Vancomycin HCl (Vanco rx to dose) 1 ea DAILY PRN MISC Per rx protocol 10/18/17 13:15 11/17/17 13:14 Vancomycin HCl/ Dextrose 250 ml @ 125 mls/hr Q24H IVPB 10/18/17 14:30 10/23/17 23:59 10/18/17 15:34 Elina Marie M.D. Oct 19, 2017 14:52
[2017-10-19] MEDS: Vancomycin 1.5 GM/D5W 250ML IVPB SCH (15:47)
[2017-10-19 20:00] VITALS: BP 92/58
[2017-10-19] MEDS: Donepezil 5mg Tab ORAL SCH (20:33)
[2017-10-19] MEDS: Depakote ER 250mg tab ORAL SCH (20:33)
[2017-10-19] MEDS: Tamsulosin 0.4mg cap ORAL SCH (20:33)
[2017-10-19 23:56] VITALS: BP 101/65
[2017-10-20 04:00] VITALS: BP 118/77
[2017-10-20] MEDS: ceFAZolin sod 1 GM in NS 55 ML IVPB SCH ×2 (05:35→12:27)
[2017-10-20] MEDS: LORazepam 1mg tab ORAL PRN (07:52)
[2017-10-20] MEDS: Aspirin Baby 81mg ORAL SCH (07:52)
[2017-10-20] MEDS: Lisinopril 2.5mg tab ORAL SCH (07:53)
[2017-10-20] MEDS: Heparin 5000 units/ml inj SUBQ SCH ×2 (07:55→21:58)
[2017-10-20 08:00] VITALS: BP 122/74
--- NOTE | 2017-10-20 10:18 | General Progress Note ---
Assessment/Plan Problem List: (1) Hypotension ICD Codes: I95.9 - Hypotension, unspecified SNOMED: 61501195 (2) Bilateral cellulitis of lower leg ICD Codes: L03.116 - Cellulitis of left lower limb; L03.115 - Cellulitis of right lower limb SNOMED: 866701946 (3) Venous stasis dermatitis of both lower extremities ICD Codes: I87.2 - Venous insufficiency (chronic) (peripheral) SNOMED: 74609384 (4) Encephalopathy ICD Codes: G93.40 - Encephalopathy, unspecified SNOMED: 77899422 (5) Functional paraparesis ICD Codes: G82.20 - Paraplegia, unspecified SNOMED: 855625500 Status: stable Assessment/Plan Ancef / Vanco leg elevation PO Lasix K Phos as needed ? DC in am ? Subjective ROS Limited/Unobtainable: No Allergies: Coded Allergies: No Known Allergies (Unverified , 10/08/14) Objective Last 24 Hour Vital Signs Date Time Temp Pulse Resp B/P (MAP) Pulse Ox O2 Delivery O2 Flow Rate FiO2 10/20/17 08:00 97.4 68 18 122/74 96 97.4 10/20/17 07:53 118/77 10/20/17 04:00 97.5 65 21 118/77 97 97.5 10/19/17 23:56 97.9 81 21 101/65 96 97.9 10/19/17 20:00 98.2 75 21 92/58 93 98.2 10/19/17 12:00 97.7 18 106/67 96 97.7 Intake and Output 10/19/17 10/20/17 19:00 07:00 Intake Total 1160 ml 220 ml Balance 1160 ml 220 ml Intake Oral 800 ml IV Total 360 ml 220 ml # Voids 8 3 Height (Feet): 6 Height (Inches): 0.00 Weight (Pounds): 170 General Appearance: no apparent distress Cardiovascular: regular rhythm Respiratory/Chest: decreased breath sounds Abdomen: soft Extremities: other Edema: no edema noted Arm (L), no edema noted Arm (R), no edema noted Leg (L), no edema noted Leg (R), no edema noted Pedal (L), no edema noted Pedal (R), no edema noted Generalized Objective no other change MENA CÁRDENAS 4, 2018 10:18
[2017-10-20] MEDS: OLANZapine 2.5mg tab ORAL SCH ×2 (10:47→16:31)
[2017-10-20 12:03] VITALS: BP 125/58
[2017-10-20] MEDS: Vancomycin 1.5 GM/D5W 250ML IVPB SCH (14:56)
--- NOTE | 2017-10-20 15:02 | Infectious Diseases Prog Note ---
Assessment/Plan Problems: (1) Bilateral cellulitis of lower leg Assessment & Plan: improving, will switch vancomycin and cefazolin empiric coverage, to oral keflex and doxycycline for another 6 days (2) Venous stasis dermatitis of both lower extremities Assessment & Plan: await venous doppler to rule out DVT, keep legs elevated all the time (3) Altered mental status Assessment & Plan: improving, with negative head CT of the brain, avoid sedative , continue neuro check Subjective ROS Limited/Unobtainable: Yes Allergies: Coded Allergies: No Known Allergies (Unverified , 10/08/14) Subjective he was more awake and alert today, nonverbal, dosen't follow commands. afebrile , with less legs edema and redness Objective Vital Signs Last 24 Hour Vital Signs Date Time Temp Pulse Resp B/P (MAP) Pulse Ox O2 Delivery O2 Flow Rate FiO2 10/20/17 12:03 98.3 82 18 125/58 92 98.3 10/20/17 08:00 97.4 68 18 122/74 96 97.4 10/20/17 07:53 118/77 10/20/17 04:00 97.5 65 21 118/77 97 97.5 10/19/17 23:56 97.9 81 21 101/65 96 97.9 10/19/17 20:00 98.2 75 21 92/58 93 98.2 Height (Feet): 6 Height (Inches): 0.00 Weight (Pounds): 170 General Appearance: WD/WN, no acute distress HEENT: normocephalic, atraumatic, anicteric, mucous membranes moist, PERRL Respiratory/Chest: chest wall non-tender, lungs clear, normal breath sounds, no respiratory distress, no accessory muscle use Cardiovascular: normal peripheral pulses, normal rate, regular rhythm, no gallop/murmur, no JVD Abdomen: normal bowel sounds, soft, non tender, no organomegaly, non distended , no mass, no scars Extremities: no cyanosis, no clubbing Skin: no rash, no lesions, other - mild redness and dryness Neurologic/Psychiatric: alert Lymphatic: no neck adenopathy, no groin adenopathy Microbiology Date/Time Source Procedure Growth Status 10/17/17 16:00 Blood Blood Culture - Preliminary NO GROWTH AFTER 48 HOURS Resulted 10/17/17 15:50 Blood Blood Culture - Preliminary NO GROWTH AFTER 48 HOURS Resulted 10/17/17 18:45 Nasal Nares MRSA Culture - Final NO METHICILLIN RESISTANT STAPH AUREUS... Complete 10/17/17 18:45 Rectum VRE Culture - Final NO VANCOMYCIN RESISTANT ENTEROCOCCUS ... Complete Laboratory Tests Test 10/20/17 10:20 10/20/17 14:18 C-Reactive Protein, Quantitative 0.8 mg/dL (0.00-0.90) Vancomycin Level Trough Pending Current Medications Medications (Trade) Dose Ordered Sig/Monalisa Route PRN Reason Start Time Stop Time Status Last Admin Dose Admin Acetaminophen (Tylenol) 625 mg Q6H PRN ORAL For Mild Pain 10/17/17 17:45 11/16/17 17:44 Aspirin (ASA) 81 mg DAILY ORAL 10/18/17 09:00 11/17/17 08:59 10/20/17 07:52 Cefazolin Sodium 1 gm/Sodium Chloride 55 ml @ 110 mls/hr Q8HR IVPB 10/17/17 19:30 10/24/17 19:29 10/20/17 12:27 Divalproex Sodium (Depakote ER) 750 mg QHS ORAL 10/17/17 21:00 11/16/17 20:59 10/19/17 20:33 Divalproex Sodium (Depakote) 1,000 mg HSPRN ORAL 10/20/17 21:00 11/19/17 20:59 Donepezil HCl (Aricept) 5 mg QHS ORAL 10/17/17 21:00 11/16/17 20:59 10/19/17 20:33 Furosemide (Lasix) 20 mg DAILY ORAL 10/20/17 09:00 11/19/17 08:59 10/20/17 07:54 Heparin Sodium (Porcine) (Heparin 5000 units/ml) 5,000 units EVERY 12 HOURS SUBQ 10/17/17 21:00 11/16/17 20:59 10/20/17 07:55 Lisinopril (Zestril) 2.5 mg DAILY ORAL 10/19/17 09:00 11/18/17 08:59 10/20/17 07:53 Lorazepam (Ativan) 1 mg Q4H PRN ORAL For Anxiety 10/18/17 09:45 10/25/17 09:44 10/20/17 07:52 Olanzapine (ZyPREXA) 2.5 mg BID ORAL 10/20/17 11:00 11/19/17 10:59 10/20/17 10:47 Pantoprazole (Protonix) 40 mg EVERY 12 HOURS ORAL 10/17/17 21:00 11/16/17 20:59 10/20/17 07:52 Potassium Chloride (K-Dur) 40 meq BID ORAL 10/20/17 18:00 11/19/17 08:59 Tamsulosin HCl (Flomax) 0.4 mg QHS ORAL 10/18/17 21:00 11/16/17 17:59 10/19/17 20:33 Vancomycin HCl (Vanco rx to dose) 1 ea DAILY PRN MISC Per rx protocol 10/18/17 13:15 11/17/17 13:14 Vancomycin HCl/ Dextrose 250 ml @ 125 mls/hr Q24H IVPB 10/18/17 14:30 10/23/17 23:59 10/20/17 14:56 Elina Marie M.D. Oct 20, 2017 15:01
--- NOTE | 2017-10-20 15:42 | Cardiology Report ---
APPROVED REPORT EXAM: Two-dimensional and M-mode echocardiogram with Doppler and color Doppler. INDICATION Congestive Heart Failure M-Mode DIMENSIONS Left Atrium (MM)5.0 (1.6-4.0cm) Aortic Root3.9 (2.0-3.7cm) Aortic Cusp Exc.1.3 (1.5-2.0cm) Technically difficult study due to poor acoustical windows and patient combative . M-mode measurements of left ventricle not obtainable due to cardiac position (angle) Normal left ventricular chamber size, systolic function and wall motion to extent visualizedLeft ventricular ejection fraction estimated to be 60 %. No evidence left ventricular hypertrophy by . No evidence of pericardial effusion Mild left atrial enlargements . Right ventricle chamber size are within normal limits . Heavy Focal aortic valve sclerosis . Heavy Thickened mitral valve leaflets . Mitral annulus and aortic root calcification. Normal Pulmonic valve structure. Normal tricuspid valve structure. IVC at size 1.7 without physiologic collapse, suggestive of increased RA pressure. A color flow and spectral Doppler study was performed and revealed: No aortic regurgitation. Trace mitral regurgitation. Mitral diastolic velocities suggest reduced left ventricular relaxation c/w mild LV diastolic dysfunction (Grade I ). Trace tricuspid regurgitation. Tricuspid systolic velocities suggests peak right ventricular systolic pressure of 20 mmH . No Pulmonic regurgitation present.
[2017-10-20 16:00] VITALS: BP 128/61
[2017-10-20] MEDS: Cephalexin 500mg cap ORAL SCH ×2 (16:31→21:56)
[2017-10-20] MEDS ORDERED: NS 275ml ONE (18:17)
[2017-10-20] MEDS ORDERED: Tubing IV Secondary IV ONE (18:17)
[2017-10-20 20:21] VITALS: BP 127/71
[2017-10-20] MEDS ORDERED: Depakote 500mg tab ORAL SCH (21:00)
[2017-10-20] MEDS: Donepezil 5mg Tab ORAL SCH (21:55)
[2017-10-20] MEDS: Depakote ER 250mg tab ORAL SCH (21:55)
[2017-10-20] MEDS: Tamsulosin 0.4mg cap ORAL SCH (21:56)
[2017-10-20 23:58] VITALS: BP 147/70
[2017-10-21 04:29] VITALS: BP 114/63
[2017-10-21 08:00] VITALS: BP 147/92
[2017-10-21] MEDS: Lisinopril 2.5mg tab ORAL SCH (08:08)
[2017-10-21] MEDS: Aspirin Baby 81mg ORAL SCH (08:09)
[2017-10-21] MEDS: Heparin 5000 units/ml inj SUBQ SCH (08:09)
[2017-10-21] MEDS: Cephalexin 500mg cap ORAL SCH ×3 (08:09→17:09)
[2017-10-21] MEDS: OLANZapine 2.5mg tab ORAL SCH ×2 (08:09→17:09)
[2017-10-21 08:30] LABS: BASOPHILS % (AUTO) 1.3 % (0.0-2.0); EOSINOPHILS % (AUTO) 3.3 % (0.0-3.0); HEMATOCRIT 47.9 % (42.0-52.0); HEMOGLOBIN 15.9 G/DL (14.2-18.0); LYMPHOCYTES % (AUTO) 23.5 % (20.0-45.0); MEAN CORPUSCULAR VOLUME 95 FL (80-99); MONOCYTES % (AUTO) 11.9 % (1.0-10.0); PLATELET COUNT 181 K/UL (150-450); RED BLOOD COUNT 5.05 M/UL (4.70-6.10); RED CELL DISTRIBUTION WIDTH 13.2 % (11.6-14.8); WHITE BLOOD COUNT 6.9 K/UL (4.8-10.8)
[2017-10-21 08:55] LABS: ALANINE AMINOTRANSFERASE 32 U/L (12-78); ALBUMIN 2.8 G/DL (3.4-5.0); ALBUMIN/GLOBULIN RATIO 0.7 (1.0-2.7); ALKALINE PHOSPHATASE 53 U/L (46-116); ANION GAP 5 mmol/L (5-15); ASPARTATE AMINO TRANSFERASE 46 U/L (15-37); BILIRUBIN,TOTAL 0.8 MG/DL (0.2-1.0); BLOOD UREA NITROGEN 17 mg/dL (7-18); CARBON DIOXIDE 30 MMOL/L (21-32); CHLORIDE 105 MMOL/L (98-107); PHOSPHORUS 2.1 MG/DL (2.5-4.9); POTASSIUM 3.8 MMOL/L (3.5-5.1); SODIUM 140 MMOL/L (136-145)
[2017-10-21 12:00] VITALS: BP 130/79
--- NOTE | 2017-10-21 13:19 | General Progress Note ---
Assessment/Plan Problem List: (1) Hypotension ICD Codes: I95.9 - Hypotension, unspecified SNOMED: 11215510 (2) Bilateral cellulitis of lower leg ICD Codes: L03.116 - Cellulitis of left lower limb; L03.115 - Cellulitis of right lower limb SNOMED: 393332200 (3) Venous stasis dermatitis of both lower extremities ICD Codes: I87.2 - Venous insufficiency (chronic) (peripheral) SNOMED: 54201814 (4) Encephalopathy ICD Codes: G93.40 - Encephalopathy, unspecified SNOMED: 82082464 (5) Functional paraparesis ICD Codes: G82.20 - Paraplegia, unspecified SNOMED: 930285267 Assessment/Plan Ancef / [place] DC on Keflex and Dozy leg elevation PO Lasix K Phos as needed ? DC today Subjective ROS Limited/Unobtainable: No Constitutional: Reports: malaise Allergies: Coded Allergies: No Known Allergies (Unverified , 10/08/14) Objective Last 24 Hour Vital Signs Date Time Temp Pulse Resp B/P (MAP) Pulse Ox O2 Delivery O2 Flow Rate FiO2 10/21/17 12:00 97.3 76 20 130/79 97 97.3 10/21/17 08:08 147/92 10/21/17 08:00 97.7 74 20 147/92 96 97.7 10/21/17 04:29 97.5 70 20 114/63 93 Room Air 97.5 10/20/17 23:58 98.2 92 20 147/70 96 Room Air 98.2 10/20/17 20:21 98.1 74 20 127/71 95 Room Air 98.1 10/20/17 16:00 97.9 80 18 128/61 94 97.9 Intake and Output 10/20/17 10/21/17 19:00 07:00 Intake Total 800 ml Balance 800 ml Intake Oral 800 ml # Voids 5 3 # Bowel Movements 1 Current Medications Medications (Trade) Dose Ordered Sig/Monalisa Route PRN Reason Start Time Stop Time Status Last Admin Dose Admin Acetaminophen (Tylenol) 625 mg Q6H PRN ORAL For Mild Pain 10/17/17 17:45 11/16/17 17:44 Aspirin (ASA) 81 mg DAILY ORAL 10/18/17 09:00 11/17/17 08:59 10/21/17 08:09 Cephalexin (Keflex) 500 mg FOUR TIMES A DAY ORAL 10/20/17 18:00 10/27/17 17:59 10/21/17 13:00 Divalproex Sodium (Depakote ER) 750 mg QHS ORAL 10/17/17 21:00 11/16/17 20:59 10/20/17 21:55 Divalproex Sodium (Depakote) 1,000 mg HSPRN ORAL 10/20/17 21:00 11/19/17 20:59 Donepezil HCl (Aricept) 5 mg QHS ORAL 10/17/17 21:00 11/16/17 20:59 10/20/17 21:55 Doxycycline Monohydrate (Vibramycin) 100 mg EVERY 12 HOURS ORAL 10/20/17 21:00 10/27/17 20:59 10/21/17 08:09 Furosemide (Lasix) 20 mg DAILY ORAL 10/20/17 09:00 11/19/17 08:59 10/21/17 08:09 Heparin Sodium (Porcine) (Heparin 5000 units/ml) 5,000 units EVERY 12 HOURS SUBQ 10/17/17 21:00 11/16/17 20:59 10/21/17 08:09 Lisinopril (Zestril) 2.5 mg DAILY ORAL 10/19/17 09:00 11/18/17 08:59 10/21/17 08:08 Lorazepam (Ativan) 1 mg Q4H PRN ORAL For Anxiety 10/18/17 09:45 10/25/17 09:44 10/20/17 07:52 Olanzapine (ZyPREXA) 2.5 mg BID ORAL 10/20/17 11:00 11/19/17 10:59 10/21/17 08:09 Pantoprazole (Protonix) 40 mg EVERY 12 HOURS ORAL 10/17/17 21:00 11/16/17 20:59 10/21/17 08:09 Potassium Chloride (K-Dur) 40 meq BID ORAL 10/20/17 18:00 11/19/17 08:59 10/21/17 08:08 Tamsulosin HCl (Flomax) 0.4 mg QHS ORAL 10/18/17 21:00 11/16/17 17:59 10/20/17 21:56 Laboratory Tests 10/20/17 14:18: Vancomycin Level Trough 9.6 10/21/17 07:10: White Blood Count 6.9, Red Blood Count 5.05, Hemoglobin 15.9, Hematocrit 47.9, Mean Corpuscular Volume 95, Mean Corpuscular Hemoglobin 31.5H, Mean Corpuscular Hemoglobin Concent 33.2, Red Cell Distribution Width 13.2, Platelet Count 181, Mean Platelet Volume 9.4, Neutrophils (%) (Auto) 60.0, Lymphocytes (%) (Auto) 23.5, Monocytes (%) (Auto) 11.9H, Eosinophils (%) (Auto) 3.3H, Basophils (%) ( Auto) 1.3, Sodium Level 140, Potassium Level 3.8, Chloride Level 105, Carbon Dioxide Level 30, Anion Gap 5, Blood Urea Nitrogen 17, Creatinine 1.0, Estimat Glomerular Filtration Rate , Glucose Level 85, Calcium Level 9.0, Phosphorus Level 2.1L, Magnesium Level 1.9, Total Bilirubin 0.8, Aspartate Amino Transf ( AST/SGOT) 46H, Alanine Aminotransferase (ALT/SGPT) 32, Alkaline Phosphatase 53, Pro-B-Type Natriuretic Peptide 104, Total Protein 6.8, Albumin 2.8L, Globulin 4.0, Albumin/Globulin Ratio 0.7L Height (Feet): 6 Height (Inches): 0.00 Weight (Pounds): 170 General Appearance: no apparent distress Objective no other change MENA CÁRDENAS 5, 2018 13:19
[2017-10-21] MEDS ORDERED: FUROSEMIDE20 M1 ORAL (13:23)
[2017-10-21] MEDS ORDERED: DOXYCYCLINE HY100 M2 ORAL (13:23)
[2017-10-21] MEDS ORDERED: OLANZAPINE2.5 MG ORAL (13:23)
[2017-10-21] MEDS ORDERED: DIVALPROEX SOD500 MG ORAL (13:23)
[2017-10-21] MEDS ORDERED: LISINOPRIL5 MG ORAL (13:23)
[2017-10-21] MEDS ORDERED: KEFLEX500 M1 ORAL (13:23)
[2017-10-21] MEDS ORDERED: ARICEPT5 MG ORAL (13:23)
[2017-10-21] MEDS ORDERED: DEPAKOTE ER250 MG ORAL (13:23)
--- NOTE | 2017-10-21 13:24 | Discharge Instructions ---
Discharge Instructions Discharge Instructions Follow up with: fu with me at [facility] Diet: cardiac 2 GM Na, low fat, other Special Instructions leg elexation skin care For Congestive Heart Failure Reminder Report to your physician any weight gain of 5 pounds or more in one week. MENA CÁRDENAS Oct 21, 2017 13:24
--- NOTE | 2017-10-21 13:52 | Infectious Diseases Prog Note ---
Assessment/Plan Problems: (1) Bilateral cellulitis of lower leg Assessment & Plan: improving, S/P vancomycin and cefazolin empiric treatment , continue oral keflex and doxycycline for another 5 days (2) Venous stasis dermatitis of both lower extremities Assessment & Plan: await venous doppler to rule out DVT, keep legs elevated all the time (3) Altered mental status Assessment & Plan: improving, with negative head CT of the brain, avoid sedative . Subjective ROS Limited/Unobtainable: Yes Allergies: Coded Allergies: No Known Allergies (Unverified , 10/08/14) Subjective he was more awake and alert today, nonverbal, dosen't follow commands. afebrile , with less legs edema and redness Objective Vital Signs Last 24 Hour Vital Signs Date Time Temp Pulse Resp B/P (MAP) Pulse Ox O2 Delivery O2 Flow Rate FiO2 10/21/17 12:00 97.3 76 20 130/79 97 97.3 10/21/17 08:08 147/92 10/21/17 08:00 97.7 74 20 147/92 96 97.7 10/21/17 04:29 97.5 70 20 114/63 93 Room Air 97.5 10/20/17 23:58 98.2 92 20 147/70 96 Room Air 98.2 10/20/17 20:21 98.1 74 20 127/71 95 Room Air 98.1 10/20/17 16:00 97.9 80 18 128/61 94 97.9 Height (Feet): 6 Height (Inches): 0.00 Weight (Pounds): 170 General Appearance: WD/WN, no acute distress, cachetic HEENT: normocephalic, atraumatic, anicteric, mucous membranes moist, PERRL, EOMI, supple Respiratory/Chest: chest wall non-tender, lungs clear, normal breath sounds, no respiratory distress, no accessory muscle use Cardiovascular: normal peripheral pulses, normal rate, regular rhythm, no gallop/murmur, no JVD Abdomen: normal bowel sounds, soft, non tender, no organomegaly, non distended , no mass, no scars Extremities: no cyanosis, no clubbing Skin: no rash, no lesions, no ulcers, other - mildely red skin with some bruises Neurologic/Psychiatric: alert, responsive Lymphatic: no neck adenopathy, no groin adenopathy Laboratory Tests Test 10/20/17 14:18 10/21/17 07:10 Vancomycin Level Trough 9.6 ug/mL (5.0-12.0) White Blood Count 6.9 K/UL (4.8-10.8) Red Blood Count 5.05 M/UL (4.70-6.10) Hemoglobin 15.9 G/DL (14.2-18.0) Hematocrit 47.9 % (42.0-52.0) Mean Corpuscular Volume 95 FL (80-99) Mean Corpuscular Hemoglobin 31.5 PG (27.0-31.0) H Mean Corpuscular Hemoglobin Concent 33.2 G/DL (32.0-36.0) Red Cell Distribution Width 13.2 % (11.6-14.8) Platelet Count 181 K/UL (150-450) Mean Platelet Volume 9.4 FL (6.5-10.1) Neutrophils (%) (Auto) 60.0 % (45.0-75.0) Lymphocytes (%) (Auto) 23.5 % (20.0-45.0) Monocytes (%) (Auto) 11.9 % (1.0-10.0) H Eosinophils (%) (Auto) 3.3 % (0.0-3.0) H Basophils (%) (Auto) 1.3 % (0.0-2.0) Sodium Level 140 MMOL/L (136-145) Potassium Level 3.8 MMOL/L (3.5-5.1) Chloride Level 105 MMOL/L (98-107) Carbon Dioxide Level 30 MMOL/L (21-32) Anion Gap 5 mmol/L (5-15) Blood Urea Nitrogen 17 mg/dL (7-18) Creatinine 1.0 MG/DL (0.55-1.30) Estimat Glomerular Filtration Rate mL/min (>60) Glucose Level 85 MG/DL (74-106) Calcium Level 9.0 MG/DL (8.5-10.1) Phosphorus Level 2.1 MG/DL (2.5-4.9) L Magnesium Level 1.9 MG/DL (1.8-2.4) Total Bilirubin 0.8 MG/DL (0.2-1.0) Aspartate Amino Transf (AST/SGOT) 46 U/L (15-37) H Alanine Aminotransferase (ALT/SGPT) 32 U/L (12-78) Alkaline Phosphatase 53 U/L (46-116) Pro-B-Type Natriuretic Peptide 104 pg/mL (0-125) Total Protein 6.8 G/DL (6.4-8.2) Albumin 2.8 G/DL (3.4-5.0) L Globulin 4.0 g/dL Albumin/Globulin Ratio 0.7 (1.0-2.7) L Current Medications Medications (Trade) Dose Ordered Sig/Monalisa Route PRN Reason Start Time Stop Time Status Last Admin Dose Admin Acetaminophen (Tylenol) 625 mg Q6H PRN ORAL For Mild Pain 10/17/17 17:45 11/16/17 17:44 Aspirin (ASA) 81 mg DAILY ORAL 10/18/17 09:00 11/17/17 08:59 10/21/17 08:09 Cephalexin (Keflex) 500 mg FOUR TIMES A DAY ORAL 10/20/17 18:00 10/27/17 17:59 10/21/17 13:00 Divalproex Sodium (Depakote ER) 750 mg QHS ORAL 10/17/17 21:00 11/16/17 20:59 10/20/17 21:55 Divalproex Sodium (Depakote) 1,000 mg HSPRN ORAL 10/20/17 21:00 11/19/17 20:59 Donepezil HCl (Aricept) 5 mg QHS ORAL 10/17/17 21:00 11/16/17 20:59 10/20/17 21:55 Doxycycline Monohydrate (Vibramycin) 100 mg EVERY 12 HOURS ORAL 10/20/17 21:00 10/27/17 20:59 10/21/17 08:09 Furosemide (Lasix) 20 mg DAILY ORAL 10/20/17 09:00 11/19/17 08:59 10/21/17 08:09 Heparin Sodium (Porcine) (Heparin 5000 units/ml) 5,000 units EVERY 12 HOURS SUBQ 10/17/17 21:00 11/16/17 20:59 10/21/17 08:09 Lisinopril (Zestril) 2.5 mg DAILY ORAL 10/19/17 09:00 11/18/17 08:59 10/21/17 08:08 Lorazepam (Ativan) 1 mg Q4H PRN ORAL For Anxiety 10/18/17 09:45 10/25/17 09:44 10/20/17 07:52 Olanzapine (ZyPREXA) 2.5 mg BID ORAL 10/20/17 11:00 11/19/17 10:59 10/21/17 08:09 Pantoprazole (Protonix) 40 mg EVERY 12 HOURS ORAL 10/17/17 21:00 11/16/17 20:59 10/21/17 08:09 Tamsulosin HCl (Flomax) 0.4 mg QHS ORAL 10/18/17 21:00 11/16/17 17:59 10/20/17 21:56 Elina Marie M.D. Oct 21, 2017 13:52
[2017-10-21] MEDS ORDERED: NS 275ml ONE (18:54)
--- NOTE | 2017-10-21 22:29 | General Progress Note ---
Assessment/Plan Assessment/Plan Dementia with behavior disturbance. PLAN: We will continue the Depakote 750 mg. Discontinue donepezil. Ativan as needed. Provide the patient with supportive therapy and reality orientation. Subjective Date patient seen: Oct 19, 2017 Neurologic/Psychiatric: Reports: anxiety, depressed, emotional problems Allergies: Coded Allergies: No Known Allergies (Unverified , 10/08/14) Objective Last 24 Hour Vital Signs Date Time Temp Pulse Resp B/P (MAP) Pulse Ox O2 Delivery O2 Flow Rate FiO2 10/21/17 12:00 97.3 76 20 130/79 97 97.3 10/21/17 08:08 147/92 10/21/17 08:00 97.7 74 20 147/92 96 97.7 10/21/17 04:29 97.5 70 20 114/63 93 Room Air 97.5 10/20/17 23:58 98.2 92 20 147/70 96 Room Air 98.2 Intake and Output 10/20/17 10/21/17 19:00 07:00 Intake Total 800 ml Balance 800 ml Intake Oral 800 ml # Voids 5 3 # Bowel Movements 1 Laboratory Tests 10/21/17 07:10: White Blood Count 6.9, Red Blood Count 5.05, Hemoglobin 15.9, Hematocrit 47.9, Mean Corpuscular Volume 95, Mean Corpuscular Hemoglobin 31.5H, Mean Corpuscular Hemoglobin Concent 33.2, Red Cell Distribution Width 13.2, Platelet Count 181, Mean Platelet Volume 9.4, Neutrophils (%) (Auto) 60.0, Lymphocytes (%) (Auto) 23.5, Monocytes (%) (Auto) 11.9H, Eosinophils (%) (Auto) 3.3H, Basophils (%) ( Auto) 1.3, Sodium Level 140, Potassium Level 3.8, Chloride Level 105, Carbon Dioxide Level 30, Anion Gap 5, Blood Urea Nitrogen 17, Creatinine 1.0, Estimat Glomerular Filtration Rate , Glucose Level 85, Calcium Level 9.0, Phosphorus Level 2.1L, Magnesium Level 1.9, Total Bilirubin 0.8, Aspartate Amino Transf ( AST/SGOT) 46H, Alanine Aminotransferase (ALT/SGPT) 32, Alkaline Phosphatase 53, Pro-B-Type Natriuretic Peptide 104, Total Protein 6.8, Albumin 2.8L, Globulin 4.0, Albumin/Globulin Ratio 0.7L Height (Feet): 6 Height (Inches): 0.00 Weight (Pounds): 170 General Appearance: no apparent distress, confused, agitated, combative Elle Paul M.D. Oct 21, 2017 22:29
--- NOTE | 2017-10-21 22:30 | Psych Consult Progress Note ---
Psych Consult Progress Note Consult 10/20/17 Vital Signs Last 24 Hour Vital Signs Date Time Temp Pulse Resp B/P (MAP) Pulse Ox O2 Delivery O2 Flow Rate FiO2 10/21/17 12:00 97.3 76 20 130/79 97 97.3 10/21/17 08:08 147/92 10/21/17 08:00 97.7 74 20 147/92 96 97.7 10/21/17 04:29 97.5 70 20 114/63 93 Room Air 97.5 10/20/17 23:58 98.2 92 20 147/70 96 Room Air 98.2 Labs Laboratory Tests Test 10/21/17 07:10 White Blood Count 6.9 K/UL (4.8-10.8) Red Blood Count 5.05 M/UL (4.70-6.10) Hemoglobin 15.9 G/DL (14.2-18.0) Hematocrit 47.9 % (42.0-52.0) Mean Corpuscular Volume 95 FL (80-99) Mean Corpuscular Hemoglobin 31.5 PG (27.0-31.0) H Mean Corpuscular Hemoglobin Concent 33.2 G/DL (32.0-36.0) Red Cell Distribution Width 13.2 % (11.6-14.8) Platelet Count 181 K/UL (150-450) Mean Platelet Volume 9.4 FL (6.5-10.1) Neutrophils (%) (Auto) 60.0 % (45.0-75.0) Lymphocytes (%) (Auto) 23.5 % (20.0-45.0) Monocytes (%) (Auto) 11.9 % (1.0-10.0) H Eosinophils (%) (Auto) 3.3 % (0.0-3.0) H Basophils (%) (Auto) 1.3 % (0.0-2.0) Sodium Level 140 MMOL/L (136-145) Potassium Level 3.8 MMOL/L (3.5-5.1) Chloride Level 105 MMOL/L (98-107) Carbon Dioxide Level 30 MMOL/L (21-32) Anion Gap 5 mmol/L (5-15) Blood Urea Nitrogen 17 mg/dL (7-18) Creatinine 1.0 MG/DL (0.55-1.30) Estimat Glomerular Filtration Rate mL/min (>60) Glucose Level 85 MG/DL (74-106) Calcium Level 9.0 MG/DL (8.5-10.1) Phosphorus Level 2.1 MG/DL (2.5-4.9) L Magnesium Level 1.9 MG/DL (1.8-2.4) Total Bilirubin 0.8 MG/DL (0.2-1.0) Aspartate Amino Transf (AST/SGOT) 46 U/L (15-37) H Alanine Aminotransferase (ALT/SGPT) 32 U/L (12-78) Alkaline Phosphatase 53 U/L (46-116) Pro-B-Type Natriuretic Peptide 104 pg/mL (0-125) Total Protein 6.8 G/DL (6.4-8.2) Albumin 2.8 G/DL (3.4-5.0) L Globulin 4.0 g/dL Albumin/Globulin Ratio 0.7 (1.0-2.7) L Problems: (1) Dementia with behavioral disturbance Status: Acute Assessment & Plan: Dementia with behavior disturbance. PLAN: We will continue the Depakote 750 mg. Discontinue donepezil. Ativan as needed. Provide the patient with supportive therapy and reality orientation. Elle Paul M.D. Oct 21, 2017 22:30
--- NOTE | 2017-10-21 22:31 | General Progress Note ---
Assessment/Plan Problem List: (1) Dementia with behavioral disturbance Assessment & Plan: Dementia with behavior disturbance. PLAN: We will continue the Depakote 750 mg. Discontinue donepezil. Ativan as needed. Provide the patient with supportive therapy and reality orientation. ICD Codes: F03.91 - Unspecified dementia with behavioral disturbance SNOMED: [id number] Assessment/Plan Dementia with behavior disturbance. PLAN: We will continue the Depakote 750 mg. zyprexa 2.5 bid Ativan as needed. Provide the patient with supportive therapy and reality orientation. Subjective Date patient seen: Oct 21, 2017 Neurologic/Psychiatric: Reports: anxiety, depressed, emotional problems Allergies: Coded Allergies: No Known Allergies (Unverified , 10/08/14) Objective Last 24 Hour Vital Signs Date Time Temp Pulse Resp B/P (MAP) Pulse Ox O2 Delivery O2 Flow Rate FiO2 10/21/17 12:00 97.3 76 20 130/79 97 97.3 10/21/17 08:08 147/92 10/21/17 08:00 97.7 74 20 147/92 96 97.7 10/21/17 04:29 97.5 70 20 114/63 93 Room Air 97.5 10/20/17 23:58 98.2 92 20 147/70 96 Room Air 98.2 Intake and Output 10/20/17 10/21/17 19:00 07:00 Intake Total 800 ml Balance 800 ml Intake Oral 800 ml # Voids 5 3 # Bowel Movements 1 Laboratory Tests 10/21/17 07:10: White Blood Count 6.9, Red Blood Count 5.05, Hemoglobin 15.9, Hematocrit 47.9, Mean Corpuscular Volume 95, Mean Corpuscular Hemoglobin 31.5H, Mean Corpuscular Hemoglobin Concent 33.2, Red Cell Distribution Width 13.2, Platelet Count 181, Mean Platelet Volume 9.4, Neutrophils (%) (Auto) 60.0, Lymphocytes (%) (Auto) 23.5, Monocytes (%) (Auto) 11.9H, Eosinophils (%) (Auto) 3.3H, Basophils (%) ( Auto) 1.3, Sodium Level 140, Potassium Level 3.8, Chloride Level 105, Carbon Dioxide Level 30, Anion Gap 5, Blood Urea Nitrogen 17, Creatinine 1.0, Estimat Glomerular Filtration Rate , Glucose Level 85, Calcium Level 9.0, Phosphorus Level 2.1L, Magnesium Level 1.9, Total Bilirubin 0.8, Aspartate Amino Transf ( AST/SGOT) 46H, Alanine Aminotransferase (ALT/SGPT) 32, Alkaline Phosphatase 53, Pro-B-Type Natriuretic Peptide 104, Total Protein 6.8, Albumin 2.8L, Globulin 4.0, Albumin/Globulin Ratio 0.7L Height (Feet): 6 Height (Inches): 0.00 Weight (Pounds): 170 General Appearance: no apparent distress, alert, confused, agitated Elle Paul M.D. Oct 21, 2017 22:31
--- NOTE | 2017-10-22 10:49 | Diagnostic Imaging Report ---
APPROVED REPORT CPT Code: 17587 Present Symptoms Comments: R/O DVT BILATERAL: Imaging reveals a patent deep venous system bilaterally. There is no evidence of thrombus within the femoral, popliteal or tibial segments. The greater saphenous veins are also within normal limits. Doppler indicates normal spontaneous flow within these segments.
--- NOTE | 2017-10-24 09:41 | Discharge Summary ---
Discharge Summary Hospital Course Date of Admission Oct 17, 2017 at 16:05 Date of Discharge Oct 21, 2017 at 18:55 Admitting Diagnosis alterd mental status HPI Sahil Carbone is a 77 year old male who was admitted on Oct 17, 2017 at 16:05 for Altered Mental Status Hospital Course dc summary [id number] Discharge Medications New Medications: Cephalexin (Cephalexin) 500 Mg Tablet 500 MG ORAL FOUR TIMES A DAY for 7 Days, TAB Divalproex Sodium (Divalproex Sodium) 500 Mg Tablet.dr 1000 MG ORAL HSPRN for 30 Days, TAB Divalproex Sodium* (Depakote Er*) 250 Mg Tab.er.24h 750 MG ORAL QHS for 30 Days, TAB Donepezil Hcl* (Aricept*) 5 Mg Tablet 5 MG ORAL QHS for 30 Days, TAB Doxycycline Hyclate (Doxycycline Hyclate) 100 Mg Capsule 100 MG ORAL EVERY 12 HOURS for 7 Days, CAP Furosemide* (Lasix*) 20 Mg Tablet 20 MG ORAL DAILY for 30 Days, TAB Lisinopril (Lisinopril*) 5 Mg Tablet 2.5 MG ORAL DAILY for 30 Days, TAB Olanzapine (Olanzapine) 2.5 Mg Tablet 2.5 MG ORAL BID for 30 Days, TAB Continued Medications: Acetaminophen* (Acetaminophen 325MG Tablet*) 325 Mg Tablet 325 MG ORAL Q6H PRN for For Pain, TAB Aspirin (Aspirin) 81 Mg Tab.chew 81 MG PO DAILY, TAB Omeprazole (Omeprazole) 20 Mg Capsule.dr 20 MG ORAL DAILY, CAP Tamsulosin Hcl (Tamsulosin Hcl*) 0.4 Mg Cap.er.24h 0.4 MG ORAL BEDTIME, CAP Discharge Condition Upon Discharge: stable Discharge Disposition Patient was discharged to SNF/Subacute Facility(03) Discharge Diagnoses: Discharge Instructions Discharge Instructions Follow up with: fu with me at [facility] Special Instructions I have been assigned to complete a D/C Summary on this account. I was not involved in the patient management Annette Merino NP ([facility]) Oct 24, 2017 09:41
--- NOTE | 2017-10-25 03:00 | Discharge Summary 2 SIG ---
DATE OF ADMISSION: 10/17/2017 DATE OF DISCHARGE: 10/21/2017 REASON FOR ADMISSION: 77 years old male with past medical history of dementia, hypertension, pacemaker, depression and anxiety, was sent from the long term facility with concern for altered mental status. He appeared to be more confused than usual and was sent for evaluation. The patient by himself was unable to provide any history. The patient was noted to have lower extremities edema and erythema. The patient was taking oral antibiotic at the facility. EKG showed normal sinus rhythm with first-degree AV block, pacing. CT of the head revealed no acute intracranial pathology. Chest x-ray revealed no acute cardiopulmonary disease. The patient was afebrile, vital signs stable. The patient admitted for further management with diagnoses of: 1. Bilateral cellulitis of the lower extremity. 2. Venous stasis dermatitis of bilateral lower extremities. 3. Dementia with agitation. 4. Encephalopathy. HOSPITAL COURSE: The patient admitted. ID and Psychiatric consults were requested. The patient started on empiric IV antibiotics. Blood culture were negative. Upon discharge, ID specialist changed antibiotic to oral to complete the course. Venous duplex bilateral lower extremities revealed no evidence of acute DVT. Echocardiogram revealed preserved ejection fraction of 60% and right ventricular systolic pressure of 20. The patient was on oral diuretics. Cardiorenal parameters and volumes were closely monitored. Electrolytes were corrected as needed. Nephrotoxics were avoided. Legs were elevated. Psychiatrist seen and evaluated the patient and optimized psychiatric medication regimen. Psychiatrist diagnosed the patient with dementia with behavioral disturbances. The patient was clinically improving. The patient was stable for discharge back to long term facility. FINAL DIAGNOSES: 1. Bilateral cellulitis of lower leg. 2. Venous stasis dermatitis of bilateral lower extremities. 3. Encephalopathy. 4. Dementia with behavioral disturbances. DISCHARGE MEDICATIONS: See medication reconciliation list. DISCHARGE INSTRUCTIONS: The patient was discharged to long term facility. FOLLOWUP: Follow up with medical doctor at the facility. Josh Rea M.D. I have been assigned to dictate discharge summary on this account and I was not involved in the patient's management. Annette Merino N.P. ([facility]te[facility]) DR: NIRMALA JOB#: [id number] CC: SAMINA
--- NOTE | 2017-10-30 17:00 | Cardiology Report ---
APPROVED REPORT EKG Measurement Heart [id number] Sinus rhythm with sinus arrhythmia with 1st degree AV block Left axis deviation Nonspecific intraventricular block Cannot rule out Septal infarct, age undetermined Abnormal ECG
== END 2017-10-21 18:55 | DRG 602 ==
LOC: EDBD 15:07 → EMR 15:53 → 4E 16:05 → EDBEDREQ 16:30 → 4E 10-18 11:24
DX: L03.116 Cellulitis of left lower limb (principal); G93.40 Encephalopathy, unspecified; F03.91 Unspecified dementia, unspecified severity, with behavioral disturbance; G82.20 Paraplegia, unspecified; I95.9 Hypotension, unspecified; I25.2 Old myocardial infarction; L03.115 Cellulitis of right lower limb; Z91.83 Wandering in diseases classified elsewhere; I87.8 Other specified disorders of veins; I10 Essential (primary) hypertension; K21.9 Gastro-esophageal reflux disease without esophagitis; I25.10 Atherosclerotic heart disease of native coronary artery without angina pectoris; Z95.0 Presence of cardiac pacemaker; I87.2 Venous insufficiency (chronic) (peripheral); R45.1 Restlessness and agitation
CPT/HCPCS: 36415; 70450; 71045; 80053; 80061; 80164; 80202; 81003; 82550; 82553; 82607; 82746; 82977; 83036; 83605; 83735; 83880; 84100; 84443; 84484; 84550; 85025; 85610; 85730; 86140; 87040; 87081; 93005; 93306; 93970; 99285; J8499